=== PATIENT | female | born 1985 | race Two or more races ===

== ENCOUNTER 2024-10-13 08:00 | Outpatient (RCR) | payer MEDICAID, SELFPAY ==
--- NOTE | 2024-09-18 13:42 | PTNOTE_ITS ---
PT OP Initial Eval Patient Information Outpatient Physical Therapy Treatment Date: 09/18/24 Visit Reasons: Left leg/hip pain Medical Diagnosis: G57.12 Treatment Dx #1: LBP with radiculopathy Start of Care: 09/18/24 Date of Onset: 1 yr ago Smoking Status Smoking Status: Never smoker Initial Assessment Subjective: Pt is 39 yr old female who reports LBP and L LE pain down to the lateral tibia that has worsened since last year. Increased pain with laying flat, prolonged sitting and HH chores. PMH: x1 Imaging: with provider Pt goal: to get rid of the pain Objective: Trunk ArOM: ? B SB 50% of normal with pain ? Extension: 20% with pain around L4-5, L5-S1 ? Flexion: 5 from floor with LBP ? B rotation: 60% with pain ? R SLR ROM: 45 deg. L SLR: 50 deg with posterior knee neural tension, LBP ? TTP: moderate paraspinals L5-S1 ? Neuro: L SLR: positive Assessment: ?Pt presents with trunk extension sensitivity and overlying myofascial pain ? and TTP around L5-S1 consistent with facet joint irritation vs spondylolisthesis. ? Pt requires skilled therapy in order to decrease ? pain and improve sitting/standing tolerance and has fair rehab potential. Eval ?followed by HEP printout. Short Term and Assisted Goals ?1. Ind with HEP ? 2. Improved sitting/standing tolerance to 30 minutes with <=4/10 LBP ? 3. Decreased lower paraspinal TTP from mod to min 4. Improved HH chore tolerance to at least 30 minutes with <=3/10 LBP and no ?increase in LE ssx ? Treatment Plan ? 1. Manual therapy ? 2. Therex ? 3. Modalities as indicated, moist heat, ice, estim, mechanical traction Frequency and Duration: 2x a week for 4 weeks Certification Dates: 09/18/24 to 12/19/24 Procedure Charges OP PT Eval Mod Complex 30 minutes: Yes
--- NOTE | 2024-09-24 10:06 | PT.ODAYNRPT ---
PT Outpatient Daily Note OP Daily Note Outpatient Physical Therapy Treatment Date: 09/24/24 Visit Reasons: Left leg/hip pain Subjective: Pt report back pain is mold/moderate today. Objective: Please see flow sheet for ther ex list. Assessment: Pt tolerated interventions with minimal pain. Plan: Apply mechanical traction, assess response to treatment. Length of Time (minutes) of Treatment: 30 Minutes Procedure Charges Therapeutic Exercise 30 minutes: Yes
--- NOTE | 2024-10-01 09:57 | PT.ODAYNRPT ---
PT Outpatient Daily Note OP Daily Note Outpatient Physical Therapy Treatment Date: 10/01/24 Visit Reasons: Left leg/hip pain Subjective: Pt reports she was sore after last session. Objective: Please see flow sheet for ther ex list. Assessment: Pt instructed on prone on elbows exercise, pt completed with minimal pain that resolved after ~3 minutes. Plan: Continue with pOC. Length of Time (minutes) of Treatment: 30 Minutes Procedure Charges Therapeutic Exercise 30 minutes: Yes
--- NOTE | 2024-10-03 14:37 | PT.ODAYNRPT ---
PT Outpatient Daily Note OP Daily Note Outpatient Physical Therapy Treatment Date: 10/03/24 Visit Reasons: Left leg/hip pain Subjective: Pt reports slow progress with sympotms. Objective: Please see flow sheet for ther ex list. Assessment: Pt c/o pain, slow progress with interventions. Plan: Continue with poC. Length of Time (minutes) of Treatment: 30 Minutes Procedure Charges Therapeutic Exercise 30 minutes: Yes
--- NOTE | 2024-10-13 09:50 | PT.ODAYNRPT ---
PT Outpatient Daily Note OP Daily Note Outpatient Physical Therapy Treatment Date: 10/13/24 Visit Reasons: Left leg/hip pain Subjective: Increased LBP and L LE pain yesterday, not sure if it had to do with laying face down while reading Objective: See F/S for therex Assessment: The LE pain seems to be referred from the L/S. Pt has trunk extension sensitivity Plan: Continue per POC Length of Time (minutes) of Treatment: 30 Minutes Procedure Charges Therapeutic Exercise 30 minutes: Yes
== END 2024-10-13 23:59 | disposition home or self-care (01) ==
LOC: CPTX 08:00
PROVIDERS: PCP Nurse Practitioner Family; Referring Provider Nurse Practitioner Family; Visit Provider Nurse Practitioner Family
DX: M54.16 Radiculopathy, lumbar region (principal); G57.12 Meralgia paresthetica, left lower limb
CPT/HCPCS: 97110; 97162

== ENCOUNTER 2024-11-12 08:30 | Outpatient (RCR) | payer MEDICAID, SELFPAY ==
--- NOTE | 2024-10-15 09:40 | PT.ODAYNRPT ---
PT Outpatient Daily Note OP Daily Note Outpatient Physical Therapy Treatment Date: 10/15/24 Visit Reasons: Left leg/hip pain Subjective: Increased LBP and L LE pain yesterday, not sure if it had to do with laying face down while reading Objective: See F/S for therex MT: HVT L4-5 x1 R/L, x5' Assessment: The LE pain seems to be referred from the L/S. Pt has trunk extension sensitivity and feels relief with flexion based therex. Plan: Continue per POC Length of Time (minutes) of Treatment: 30 Minutes Procedure Charges Therapeutic Exercise 30 minutes: Yes
--- NOTE | 2024-10-27 13:06 | PT.ODAYNRPT ---
PT Outpatient Daily Note OP Daily Note Outpatient Physical Therapy Treatment Date: 10/27/24 Visit Reasons: Left leg/hip pain Subjective: Low level LBP and L LE pain today in the lateral hip Objective: See F/S for therex MT: HVT L4-5 x1 R/L, x5' Assessment: The LE pain seems to be referred from the L/S. Pt has trunk extension sensitivity and feels relief with flexion based therex. Plan: Continue per POC Length of Time (minutes) of Treatment: 30 Minutes Procedure Charges Therapeutic Exercise 30 minutes: Yes
--- NOTE | 2024-11-04 09:29 | PT.ODAYNRPT ---
PT Outpatient Daily Note OP Daily Note Outpatient Physical Therapy Treatment Date: 11/04/24 Visit Reasons: Left leg/hip pain Subjective: Pt reports continued back pain, no changes to report at this time. Objective: Please see flow sheet for ther ex list. Assessment: Slow progress with symptoms delaying interventoins progression. Plan: Assess for note. Length of Time (minutes) of Treatment: 30 Minutes Procedure Charges Therapeutic Exercise 30 minutes: Yes
--- NOTE | 2024-11-12 08:43 | PT.ODS1RPT ---
PT OP Progress/Discharge Note Date of Service: 11/12/24 Progress Note/DC Note Progress Note/Discharge Note: DC Note Patient Information Visit Reasons: Left leg/hip pain Service Continue Service or Discharge: Discharge Discharge Date: 11/12/24 Status Subjective: Temporary relief after therapy visits but LBP returns Objective: Trunk AROM: FB: 5 from floor Extension: 20% of full TTP: min/mod of lumbar paraspinals Assessment: Pt has attended the eval and 11/21 visits with limited progress with therapy goals due to continued trunk extension sensitivity and LBP consistent with facet joint pain at L5-S1. Good response to lumbar manipulation to relieve pain and there seems to be some findings on Xray at that level but Xray that she brought in is not clear. PT recommends further diagnostic imaging of lumbar spine such as CT, MRI to see L5-S1 facets. Plan: D/C Procedure Charges Therapeutic Exercise 30 minutes: Yes
== END 2024-11-13 23:59 | disposition home or self-care (01) ==
LOC: CPTX 08:30
PROVIDERS: PCP Nurse Practitioner Family; Referring Provider Nurse Practitioner Family; Visit Provider Nurse Practitioner Family
DX: M54.16 Radiculopathy, lumbar region (principal); G57.12 Meralgia paresthetica, left lower limb
CPT/HCPCS: 97110